=== PATIENT | female | born 1995 | race Caucasian/White ===

== ENCOUNTER → 2016-12-08 | Outpatient (CLI) | payer BC ==
--- NOTE | 2016-12-08 09:29 | DIAGNOSTIC IMAGING REPORT ---
LEFT HIP UNILATERAL MIN 2 VIEWS CLINICAL HISTORY: LEFT HIP PAIN pain COMPARISON: None. DISCUSSION: The bones and joint spaces appear intact. There is no evidence of fracture, dislocation or bony disease. There is no evidence for soft tissue swelling. IMPRESSION: Negative study. Electronically signed by: Leo Levin M.D. 12/08/2016 9:28 AM Dictated Date/Time: 12/08/2016 9:27 AM
--- NOTE | 2016-12-08 10:01 | DIAGNOSTIC IMAGING REPORT ---
PELVIS 1 OR 2 VIEWS CLINICAL HISTORY: LEFT HIP PAIN pain COMPARISON: None. DISCUSSION: The bones and joint spaces appear intact. There is no evidence of fracture, dislocation or bony disease. Evidence for a slight pelvic tilt to the right. No evidence for acetabular protrusion. IMPRESSION: 1. Slight pelvic tilt to the right. 2. The pelvis is otherwise negative Electronically signed by: Leo Levin M.D. 12/08/2016 10:00 AM Dictated Date/Time: 12/08/2016 9:59 AM
== END | disposition home or self-care (01) ==
LOC: C.RDSM 13:14
PROVIDERS: ATTEND Family Medicine
DX: M25.552 Pain in left hip (principal)

== ENCOUNTER 2018-01-02 08:56 | Emergency (ER) | payer BC ==
[~2018-01-02] VITALS: Ht 170.2 cm; Wt 93.1 kg
[2018-01-02 09:07] VITALS: TEMP 36.8; Ht 170.2 cm; Wt 93.1 kg
[2018-01-02] MEDS ORDERED: PSEUDOEPHEDRINE HCL 30 MG TAB PO STA (09:53)
[2018-01-02] MEDS ORDERED: ALBUT/IPRATROP 3MG/0.5MG NEB 3 ML VIAL INH STA (09:53)
[2018-01-02] MEDS ORDERED: SODIUM CHLORIDE 0.9% 1000ML 1,000 ML IV STA (09:53)
[2018-01-02] MEDS ORDERED: ONDANSETRON INJ 2 MG/ML 2 ML VIAL IV STA (09:53)
[2018-01-02] MEDS ORDERED: METHYLPREDNISOLONE 125 MG VIAL IV STA (09:53)
[2018-01-02] MEDS ORDERED: KETOROLAC TROMETHAMINE 30 MG/ML VIAL IV STA (09:53)
[2018-01-02] MEDS ORDERED: BENZONATATE 100MG CAP PO ONE (10:00)
[2018-01-02 10:30] LABS: BASO % 0.2 %; BASO ABS # 0.01 K/uL (0-0.2); EOS % 3.8 %; EOS ABS # 0.18 K/uL (0-0.5); HEMATOCRIT 45.4 % (37-47); HEMOGLOBIN 15.9 g/dL (12.0-16.0); IG# 0.02 K/uL (0.00-0.02); LYMPH % 39.5 %; LYMPH ABS # 1.85 K/uL (1.2-3.4); MEAN CELL VOLUME 95.6 fL (80-100); MEAN CORPUSCULAR HEMOGLOBIN 33.5 pg (25-34); MEAN PLATELET VOLUME 9.8 fL (7.4-10.4); MONO % 10.3 %; MONO ABS # 0.48 K/uL (0.11-0.59); NEUT % 45.8 %; NEUT ABS # 2.14 K/uL (1.4-6.5); PLATELET COUNT 241 K/uL (130-400); RED CELL DISTRIBUTION WIDTH CV 12.9 % (11.5-14.5); RED CELL DISTRIBUTION WIDTH SD 45.2 fL (36.4-46.3); WHITE BLOOD COUNT 4.68 K/uL (4.8-10.8)
[2018-01-02 10:45] LABS: ALBUMIN 3.7 gm/dl (3.4-5.0); ALT/SGPT 19 U/L (12-78); BLOOD UREA NITROGEN 10 mg/dl (7-18); CALCIUM 8.9 mg/dl (8.5-10.1); CARBON DIOXIDE 29 mmol/L (21-32); CREATININE 0.73 mg/dl (0.60-1.20); GLUCOSE 77 mg/dl (70-99); POTASSIUM 3.7 mmol/L (3.5-5.1); SODIUM 140 mmol/L (136-145)
--- NOTE | 2018-01-02 10:48 | DIAGNOSTIC IMAGING REPORT ---
CHEST 2 VIEWS ROUTINE CLINICAL HISTORY: Cough, sore throat, respiratory distress COMPARISON STUDY: No previous studies for comparison. FINDINGS: The cardiac and mediastinal contours are normal. There is no evidence of focal pulmonary consolidation. There is no evidence of failure. No pleural effusions are visualized.[ On the lateral view, there is a retroxiphoid opacity. No corresponding lesion is visualized in the PA film. Given the patient's age, this likely represents a summation IMPRESSION: 1. No evidence of failure. No evidence of focal pulmonary consolidation 2. Retroxiphoid opacity, likely representing a summation Electronically signed by: Pietro Gautam M.D. 01/02/2018 10:46 AM Dictated Date/Time: 01/02/2018 10:45 AM
[2018-01-02 10:49] LABS: ALKALINE PHOSPHATASE 71 U/L (45-117); AST/SGOT 11 U/L (15-37); CKMB < 0.5 ng/ml (0.5-3.6); TOTAL PROTEIN 7.2 gm/dl (6.4-8.2)
[2018-01-02 10:53] LABS: INFLUENZA B ANTIGEN Neg for Influ B (NEG)
[2018-01-02] MEDS ORDERED: VNTHFA/IN INH (11:44)
[2018-01-02] MEDS ORDERED: PRED20TA2 PO (11:44)
[2018-01-02] MEDS ORDERED: BENZ100C18 PO (11:44)
[2018-01-02 12:03] VITALS: BP 133/63; PULSE 74; O2SAT 98
--- NOTE | 2018-01-02 18:04 | EMERGENCY ROOM VISIT NOTE ---
ED Visit Note First contact with patient: 09:28 Chief Complaint: Cough, chest pain, back pain and sore throat. History of Present Illness: Ms. Miguel is a 22-year-old white female who ambulates into the ED accompanied by her mother with complaints of cough, chest pain, back pain and sore throat. Historically patient has a history of questionable asthma, bronchitis and is status post tonsillectomy and adenoidectomy. Patient and mother reports that she has been having ongoing symptoms for the last 2 weeks. The symptoms have included a sore throat, bifrontal head pain, mildly productive cough, bilateral flank pain. She was seen at the [facility] urgent care clinic 1 week ago and was informed that she probably had a viral infection. Mother reports a discharge no testing was done and she was placed on an amoxicillin prescription for her symptoms. Since being discharged patient and mother reports her symptoms have been getting worse. They also expressed concerns because the patient's father was diagnosed with influenza A approximately 3 weeks ago. Patient reports that her most prominent symptom that is getting worse is her cough. Initially she reports it has been intermittent and over the last 2 days she reports it has been constant. Her cough worsens with deep inspiration. She has not identified any alleviating factors related to the discomfort. Associated with her cough she does report she has been having anterior chest pain and bilateral flank pain. Both of these pains are constant and worsened with cough. She gives her overall discomfort 4/10. She has not been taking any medications for her discomfort or symptoms prior to arrival at the hospital. Additionally she complains of a fullness sensation in the bifrontal area, a sore throat sensation that she describes as an achiness, a decreased appetite and nausea; she does report the second and third day of her illness she had 2-3 episodes of vomiting but this is subsequently resolved but the nausea remains. She reports when she first started having symptoms and before she was seen at the [facility] urgent care clinic she had a 2 days of fevers but they have subsequently resolved and not returned. She denies skin eruptions, skin color changes, dizziness, lightheadedness, hearing changes, painful talking, drooling, inability to swallow, neck pain/ stiffness, palpitations, orthopnea, dependent edema, previous clots, hemoptysis , claudication, tobacco and estrogen use, recent surgery/inactivity/extended travel, diarrhea, constipation, urinary symptoms, vaginal bleeding, vaginal discharge. Review of Systems: As noted above in history of present illness. All body systems were reviewed and found to be negative as noted above. Past Medical History: As previously noted, ulcerative proctitis, Lasix surgery. Current Medications: Patient denies. Allergies to Medications: Brompheniramine, diphenhydramine, phenylpropanolamine. Social History: Patient is currently employed; she feels safe in her home environment; she denies tobacco use and admits to alcohol use. Physical Examination: Vital Signs: Date Time Temp Pulse Resp B/P (MAP) Pulse Ox O2 Delivery O2 Flow Rate FiO2 01/02/18 12:03 74 133/63 98 01/02/18 11:28 83 01/02/18 09:07 36.8 88 16 116/76 97 Room Air GENERAL: 22-year-old female in mild to moderate distress due to symptoms, nontoxic-appearing, afebrile and hemodynamically stable. NEUROLOGICAL: Awake, alert and oriented to person, place and time. Answering questions appropriately and following commands. Normal gait. Good hand eye coordination. SKIN: Warm, dry and pink. No soft tissue eruptions or trauma noted. HEENT: Atraumatic and normocephalic. No erythema or tenderness over the frontal or maxillary sinuses. External ears are nontender. Auditory canals are pink and patent. Tympanic membranes are not erythematous or bulging. PERRLA. Sclera white and conjunctiva pink without drainage. No drainage from naris with mild audible congestion. Oral cavity moist and pink. Airway is patent. Uvula is midline and no abscesses were seen. Pharynx is moderately erythematous and mildly edematous with a small amount of whitish exudative material. Speech normal and clear. No lymphadenopathy. Trachea midline. No jugular venous distention. No laryngeal tenderness. BACK: No tenderness over the bony spine. No nuchal rigidity or meningismus. Mild bilateral CVA tenderness. THORAX: Lungs sounds are clear to auscultation but decreased bilaterally in the bases. Equal bilaterally with symmetrical chest wall movements. No wheezing, rales or rhonchi. No increased respiratory effort or rate. Moderate tenderness over the anterior chest wall bilaterally without bony deformity, bony crepitus, swelling, ecchymosis or subcutaneous air. HEART: Regular rate and rhythm. No gallops, rubs or murmurs are appreciated. PMI was not displaced. No lifts, heaves or thrills. ABDOMEN: Flat, soft and nontender. Positive bowel sounds in all quadrants. No guarding, rigidity or organomegaly. EXTREMITIES: Moves all extremities well on command and with purpose. All distal neurovascular statuses are intact and equal bilaterally. No calf tenderness or cords. ED Course: Patient is assessed as noted above. Patient's medication list was reviewed. Laboratory Testing: Test 01/02/18 10:08 01/02/18 10:20 01/02/18 10:27 01/02/18 10:50 Range/Units White Blood Count 4.68 4.8-10.8 K/uL Red Blood Count 4.75 4.2-5.4 M/uL Hemoglobin 15.9 12.0-16.0 g/dL Hematocrit 45.4 37-47 % Mean Corpuscular Volume 95.6 80-100 fL Mean Corpuscular Hemoglobin 33.5 25-34 pg Mean Corpuscular Hemoglobin Concent 35.0 32-36 g/dl Platelet Count 241 130-400 K/uL Mean Platelet Volume 9.8 7.4-10.4 fL Neutrophils (%) (Auto) 45.8 % Lymphocytes (%) (Auto) 39.5 % Monocytes (%) (Auto) 10.3 % Eosinophils (%) (Auto) 3.8 % Basophils (%) (Auto) 0.2 % Neutrophils # (Auto) 2.14 1.4-6.5 K/uL Lymphocytes # (Auto) 1.85 1.2-3.4 K/uL Monocytes # (Auto) 0.48 0.11-0.59 K/uL Eosinophils # (Auto) 0.18 0-0.5 K/uL Basophils # (Auto) 0.01 0-0.2 K/uL RDW Standard Deviation 45.2 36.4-46.3 fL RDW Coefficient of Variation 12.9 11.5-14.5 % Immature Granulocyte % (Auto) 0.4 % Immature Granulocyte # (Auto) 0.02 0.00-0.02 K/uL Sodium Level 140 136-145 mmol/L Potassium Level 3.7 3.5-5.1 mmol/L Chloride Level 105 98-107 mmol/L Carbon Dioxide Level 29 21-32 mmol/L Anion Gap 6.0 3-11 mmol/L Blood Urea Nitrogen 10 7-18 mg/dl Creatinine 0.73 0.60-1.20 mg/dl Est Creatinine Clear Calc Drug Dose 139.2 ml/min Estimated GFR () 133.6 Estimated GFR (Non- 115.3 BUN/Creatinine Ratio 14.3 10-20 Random Glucose 77 70-99 mg/dl Calcium Level 8.9 8.5-10.1 mg/dl Total Bilirubin 0.9 0.2-1 mg/dl Aspartate Amino Transf (AST/SGOT) 11 15-37 U/L Alanine Aminotransferase (ALT/SGPT) 19 12-78 U/L Alkaline Phosphatase 71 45-117 U/L Total Creatine Kinase 42 26-192 U/L Creatine Kinase MB < 0.5 0.5-3.6 ng/ml Creatine Kinase MB Ratio 0-3.0 Total Protein 7.2 6.4-8.2 gm/dl Albumin 3.7 3.4-5.0 gm/dl Globulin 3.5 2.5-4.0 gm/dl Albumin/Globulin Ratio 1.0 0.9-2 Monoscreen NEG NEG Influenza Type A Antigen Neg for Influ A NEG Influenza Type B Antigen Neg for Influ B NEG Bedside D-Dimer 214 0-450 ng/mlFEU Bedside Troponin I < 0.030 0-0.045 ng/ml Urine Color YELLOW Urine Appearance CLEAR CLEAR Urine pH 7.0 4.5-7.5 Urine Specific [place] 1.005 1.000-1.030 Urine Protein NEG NEG Urine Glucose (UA) NEG NEG Urine Ketones NEG NEG Urine Occult Blood NEG NEG Urine Nitrite NEG NEG Urine Bilirubin NEG NEG Urine Urobilinogen NEG NEG Urine Leukocyte Esterase NEG NEG Group A Streptococcus Screen: Negative. Culture pending. Chest X-Rays: Were read by myself and the radiologist showing no acute infiltrates, effusions or pneumothorax. Normal heart silhouette. Radiologist does note a retroxiphoid opacity of questionable etiology. EKG: Was read by myself shows normal sinus rhythm with sinus arrhythmia. Ventricular rate 71 bpm. No acute ischemic changes were noted. Medical records were reviewed and no previous EKGs were found. Patient was hydrated with normal saline, she received 4 mg of Zofran IV for nausea, 30 mg of Toradol IV for her chest and bilateral flank pain, 125 mg of Solu-Medrol for inflammation, and albuterol/Atrovent nebulizer breathing treatment, 200 mg of Tessalon Perles for cough by mouth and 60 mg of pseudoephedrine for sinus pain/congestion. Patient was reassessed multiple times during her stay in the emergency department. Patient and mother were educated about today's findings and instructed on her treatment plan; they verbalized understanding and agreement with this plan. Clinical Impression: Acute bronchitis. Decision-Making: Initially I considered acute coronary syndrome, pneumonia, pulmonary embolism, myocarditis, pericarditis, influenza and other causes. Disposition: Patient discharged home in stable condition accompanied by her mother; prior to departure she was reassessed and subjectively reported that she was pain and symptom-free. I did listen to her lungs prior to discharge and they were clear to auscultation with increased air movements in all nielsen. Plan: Patient was encouraged alternate ibuprofen and acetaminophen every 3 hours as needed for pain or fevers. Patient was prescribed Tessalon Perles 100 mg every 8 hours for cough. Patient was prescribed an albuterol inhaler with a spacer and encouraged to use 2 puffs every 6 hours for 5 days and as needed for severe coughing episodes, shortness of breath/wheezing. Patient was prescribed prednisone 60 mg once a day for 5 days. Patient was encouraged to use [id number] decongestants as needed. Patient is encouraged to stay well-hydrated with increased clear fluids. Patient was encouraged to follow-up with her PCP for recheck. Patient was given off work for 3 days. Patient was encouraged to return to the ED for worsening cough, coughing up blood, uncontrolled fevers, uncontrolled shortness of breath/wheezing, worsening /uncontrolled pain or any new/concerning symptoms.
== END 2018-01-02 11:04 | disposition home or self-care (01) ==
LOC: C.EDB 08:56 → C.EDC 11:04
DX: J20.9 Acute bronchitis, unspecified (principal); J02.9 Acute pharyngitis, unspecified; R07.9 Chest pain, unspecified